=== PATIENT | male | born 1970 | race Asian ===

== ENCOUNTER 2018-05-19 06:16 | Day surgery (SDC) | payer OTHER ==
[2018-05-19] MEDS ORDERED: METOCLOPRAMIDE 10 MG INJ (07:00)
[2018-05-19] MEDS ORDERED: ACETAMINOPHEN 1000 MG/100 ML IVPB (07:00)
[2018-05-19] MEDS ORDERED: DEXAMETHASONE 4 MG/ML 1 ML INJ (07:00)
[2018-05-19] MEDS ORDERED: FENTAnyl 50 MCG/ML VIAL (08:33)
[2018-05-19] MEDS ORDERED: MIDAZOLAM 1 MG/ML 2 ML INJ (08:34)
[2018-05-19 08:35] LABS: ADD MAN DIFF? NO
[2018-05-19 08:37] LABS: BASOPHIL # 0.1 10^3/ul (0.0-0.1); BASOPHILS % 1.4 % (0.0-2.0); EOSINOPHILS # 0.1 10^3/ul (0.0-0.5); EOSINOPHILS % 1.1 % (0.0-7.0); HEMATOCRIT 44.5 % (42.0-52.0); HEMOGLOBIN 14.7 g/dl (14.0-18.0); LYMPHOCYTES # 1.8 10^3/ul (0.8-2.9); LYMPHOCYTES % 24.5 % (15.0-51.0); MEAN CORPUSCULAR HEMOGLOBIN 28.9 pg (29.0-33.0); MEAN CORPUSCULAR VOLUME 87.6 fl (82.0-101.0); MEAN PLATELET VOLUME 9.2 fl (7.4-10.4); MONOCYTE # 0.7 10^3/ul (0.3-0.9); MONOCYTES % 9.6 % (0.0-11.0); NEUTROPHIL # 4.6 10^3/ul (1.6-7.5); NEUTROPHILS % 63.1 % (39.0-77.0); PLATELET COUNT 346 10^3/UL (140-415); RED BLOOD COUNT 5.08 10^6/ul (4.70-6.10); RED CELL DISTRIBUTION WIDTH 12.4 % (11.5-14.5)
[2018-05-19 08:37] LABS: WHITE BLOOD COUNT 7.3 10^3/ul (4.8-10.8)
[2018-05-19 08:44] LABS: ALANINE AMINOTRANSFERASE 29 IU/L (13-69); ALBUMIN 4.8 g/dl (3.3-4.9); ALBUMIN/GLOBULIN RATIO 1.45; ALKALINE PHOSPHATASE 58 IU/L (42-121); ANION GAP 14 (8-16); ASPARTATE AMINO TRANSFERASE 26 IU/L (15-46); BILIRUBIN,INDIRECT 0.2 mg/dl (0-1.1); BILIRUBIN,TOTAL 0.2 mg/dl (0.2-1.3); BLOOD UREA NITROGEN 17 mg/dl (7-20); CALCIUM 9.2 mg/dl (8.4-10.2); CARBON DIOXIDE 26 mmol/L (21-31); CHLORIDE 108 mmol/L (97-110); CREATININE 0.89 mg/dl (0.61-1.24); GLUCOSE 131 mg/dl (70-220); POTASSIUM 4.1 mmol/L (3.5-5.1); SODIUM 144 mmol/L (135-144); TOTAL PROTEIN 8.1 g/dl (6.1-8.1)
[2018-05-19 08:49] LABS: INR 0.82; PARTIAL THROMBOPLASTIN TIME 26.5 Sec (25.0-35.0); PROTIME 11.4 Sec (11.9-14.9); PT RATIO 0.9
[2018-05-19] MEDS ORDERED: PROPOFOL 20 ML (09:16)
[2018-05-19] MEDS ORDERED: ONDANSETRON 4 MG INJ (09:17)
[2018-05-19] MEDS ORDERED: LIDOCAINE 2% (SDV) 5 ML INJ (09:17)
[2018-05-19] MEDS ORDERED: CIPROFLOXACIN 400MG/D5W 400 ML (09:31)
[2018-05-19] MEDS: IOHEXOL 300MG/ML 30 ML BTL (09:39)
[2018-05-19] MEDS ORDERED: IPRATROPIUM (NEB) 0.5 MG/2.5 ML AMP HHN (10:30)
[2018-05-19] MEDS ORDERED: MEPERIDINE 25 MG INJ IV (10:30)
[2018-05-19] MEDS ORDERED: hydrALAzine 20 MG INJ IV (10:30)
[2018-05-19] MEDS ORDERED: HYDROmorphONE 1 MG/5 ML IV SYRINGE IV ×2 (10:30)
[2018-05-19] MEDS ORDERED: ONDANSETRON 4 MG INJ IV (10:30)
[2018-05-19] MEDS ORDERED: KETOROLAC 30 MG INJ IV (10:30)
[2018-05-19] MEDS ORDERED: LABETALOL HCL 20MG INJ IV (10:30)
[2018-05-19] MEDS ORDERED: DIPHENHYDRAMINE 50 MG INJ IV (10:30)
[2018-05-19] MEDS ORDERED: FENTAnyl 50 MCG/ML VIAL IV ×2 (10:30)
== END 2018-05-19 12:09 | disposition home or self-care (01) ==
LOC: SDS 06:16
DX: N20.1 Calculus of ureter (principal); N20.0 Calculus of kidney; I10 Essential (primary) hypertension; E78.5 Hyperlipidemia, unspecified
CPT/HCPCS: 52356; 80053; 80076; 85025; 85610; 85730; 88300